=== PATIENT | female | born 2000 | race Caucasian/White ===

== ENCOUNTER 2022-12-14 11:15 | Emergency (ER) | payer BC | END 2022-12-14 13:25 | disposition home or self-care (01) | LOC: CSHERS 11:15 | DX: S93.401A Sprain of unspecified ligament of right ankle, initial encounter (principal); G40.909 Epilepsy, unspecified, not intractable, without status epilepticus; X50.1XXA Overexertion from prolonged static or awkward postures, initial encounter ==